=== PATIENT | male | born 1975 | race Caucasian/White ===

== ENCOUNTER 2020-03-13 10:52 | Outpatient (CLI) | payer OTHER, SELFPAY ==
--- NOTE | 2020-03-13 11:15 | XR_ITS ---
WS: [id number] Exam: XR elbow RT 2V [id number] Date/Time of Exam: 03/13/2020 11:15 AM Reason For Exam: RIGHT ELBOW PAIN Comparison 04/23/2016. No fracture or dislocation. No joint effusion. Normal soft tissues. XR/XR elbow RT 2V [id number] IMPRESSION: 1. Unremarkable right elbow..
== END 2020-03-13 10:53 | disposition home or self-care (01) ==
PROVIDERS: Visit Provider Dermatology
DX: M25.521 Pain in right elbow (principal)
CPT/HCPCS: 73070

== ENCOUNTER 2024-11-28 14:15 | Emergency (ER) | payer MEDICAID, SELFPAY ==
[2024-11-28 14:28] VITALS: BP 114/74; PULSE 75; RESP 18; TEMP 36.6; O2SAT 99; BMI 25.9
--- NOTE | 2024-11-28 18:02 | ED_ITS ---
HPI - Back Pain/Injury General: Chief Complaint: Back Pain/Injury Stated Complaint: back pain, felt pop, sob Time Seen by Provider: 11/28/24 16:20 Source: patient Mode of arrival: ambulatory Limitations: no limitations History of Present Illness: Patient is a 49-year-old male who presents the emergency department planing of right lower back pain. States that he bent down to move something felt a pop that started in his shoulder blades but now is in his right mid to low back and radiates down his right leg. States that his right arm is weak and numb, denies urinary symptoms or history of kidney stones. No chest pain or shortness of breath. States that he has a history of chronic back issues, and is set to have spinal stimulator placed soon. States he is here to make sure nothing is broken . No history of IV drug use, history of steroid use, history of cancer, bowel or bladder incontinence, or saddle anesthesia. MD elicited complaint: back pain Pertinent past history: prior back pain Onset (ago): hour(s) Timing: constant Severity: similar to previous episodes Similar Symptoms Previously: Yes Location: right lower back and right upper back Radiation: right upper leg Associated symptoms: Deny abdominal pain, difficulty walking, fecal incontinence, fever(s) or syncope Related Data Home Medications ?Medication ?Instructions ?Recorded ?Confirmed cyclobenzaprine 5 mg tablet ea PO 09/19/21 11/08/21 Previous Rx's ?Medication ?Instructions ?Recorded clindamycin phosphate 1 % lotion 1 applic topical BID #60 mL 10/31/21 mupirocin 2 % topical ointment 1 applic topical BID #2 2 grams 10/31/21 ketorolac 10 mg tablet 10 mg PO Q8H PRN pain 5 days #15 11/28/24 tabs methocarbamol 750 mg tablet 750 mg PO Q8H 5 days #15 t abs 11/28/24 prednisone 20 mg tablet 60 mg (3 x 20 mg) PO ONCE 5 days 11/28/24 #15 tabs Allergies Allergy/AdvReac Type Severity Reaction Status Date / Time hydrocodone Allergy Intermediate ADR-Itching Verified 11/08/21 09:00 tramadol Allergy Intermediate ADR-Agitate Verified 11/08/21 09:00 d Review of Systems General: Reports: 10 or more systems reviewed and unremarkable except in HPI and below Const: Reports: other (denies trauma); Denies: fever(s), change in weight or night sweats Card: Denies: chest pain, lightheadedness or syncope Resp: Denies: dyspnea GI: Denies: abdominal pain or fecal incontinence : Denies: urinary incontinence Musc: Reports: back pain and extremity pain (Right lower extremity); Denies: neck pain Skin/Breast: Denies: rash or skin pain Neuro: Reports: numbness in extremities (Right upper extremity); Denies: headache(s), weakness in extremities, sensory changes, lack of coordination, difficulty walking, frequent falls or involuntary movements PFS ED PFSH: Surgical History History of shoulder surgery History of decompression of ulnar nerve Social History Smoking and tobacco/nicotine status: current every day tobacco/nicotine user Physical Exam Const: COMMON NORMALS: patient oriented x3, no limitations, healthy appearing and alert OTHER: Appears uncomfortable secondary to pain Resp: COMMON NORMALS: normal respiratory effort, No retractions, No use of accessory muscles and clear to auscultation bilaterally AUSCULTATION: clear to auscultation bilaterally Cardio: COMMON NORMALS: regular rate, regular rhythm, S1 normal heart sound present and S2 normal heart sound present RATE: regular rate RHYTHM: regular rhythm HEART SOUNDS: S1 normal heart sound present and S2 normal heart sound present Back/Pelvis: COMMON NORMALS: straight leg raise negative bilaterally OTHER: Scar left thoracic back. Easily reproducible right lower and right mid back tenderness to palpation. Pain with lateral rotation at the back, as well as with flexion and extension. Extremity: COMMON NORMALS: normal to inspection and full ROM Neuro: COMMON NORMALS: patient oriented x3, moves all extremities, no focal motor deficits, no sensory deficits noted, deep tendon reflexes 2+ bilaterally and gait normal SENSORIUM/ORIENTATION: Yes alert OTHER: L3, L4, L5, and S1 nerve sensations intact. Normal knee jerk and ankle jerk reflexes. Skin: COMMON NORMALS: no rashes or lesions noted GENERAL SKIN EXAM: no rashes or lesions noted Course Vital Signs: Vital signs: Vital Signs Temperature 97.8 F 11/28/24 14:28 Pulse Rate 75 11/28/24 14:28 Respiratory Rate 18 11/28/24 14:28 Blood Pressure 114/74 11/28/24 14:28 Pulse Oximetry 99 11/28/24 14:28 Oxygen Delivery Me thod Room Air 11/28/24 14:28 MDM - Back Pain/Injury Medical Decision Making Patient presenting with atraumatic right-sided back pain, no red flag symptoms or signs of cauda equina with his history or exam. History of back surgery states he is soon to have neurostimulator placed. His vitals have been stable. Pain improved with medications here in the emergency department and there is no need for transfer for MRI or lab work here in the ED at this time. Suspect new back strain versus acute on chronic musculoskeletal pain and he is given strict return precautions to the ED to which he endorses understanding. No radiology studies performed this visit Discharge Plan Discharge Patient Disposition: Home Clinical Impression: Thoracic back pain Condition: Stable Prescriptions: New prednisone 20 mg tablet 60 mg PO ONCE 5 Days Qty: 15 0RF ketorolac 10 mg tablet 10 mg PO Q8H PRN (Reason: pain) 5 Days Qty: 15 0RF methocarbamol 750 mg tablet 750 mg PO Q8H 5 Days Qty: 15 0RF No Action cyclobenzaprine 5 mg tablet PO clindamycin phosphate 1 % lotion 1 applic topical BID Qty: 60 2RF Rx Instructions: To armpits 1-2 times daily mupirocin 2 % ointment 1 applic topical BID Qty: 22 1RF Rx Instructions: Apply to affected area until healed Discharge Orders: Discharge ED (Routine); Ordered 11/28/24 Ordered By: Cem Chakraborty Referrals: Roseline Lipscomb [Primary Care Provider, Nurse Practitioner] Patient Instructions: Patient Portal & Sami Instructions Activity Restrictions/Additional Instructions: Thoracic Back Pain Discharge Diagnosis: Right thoracic back pain (acute/subacute, non-traumatic, without red flag features). Medications: - Ketorolac (Toradol) 10 mg orally as prescribed - NSAIDs are strongly recommended for acute musculoskeletal back pain due to consistent evidence of efficacy over placebo.[1] https://doi.org/10.1097/JOM.1566001161603629 - Scheduled dosing is generally preferred for moderate/severe pain; PRN dosing may be reasonable for mild pain. - Monitor for gastrointestinal, renal, and cardiovascular adverse effects. Consider gastroprotection (e.g., proton pump inhibitor) if risk factors for GI bleeding are present.[1] https://doi.org/10.1097/JOM.5058761280018063 - Avoid concurrent use with other NSAIDs. - Methocarbamol (Robaxin) 750 mg orally as prescribed - Indicated as adjunct for relief of discomfort associated with acute, painful musculoskeletal conditions.[2] https://dailymed.Spoonity.nih.gov/dailymed/drugInfo.cfm?setid=2iv7s8yf-3m5h-2617-w5 63-0742p41uid42 - May cause drowsiness, dizziness, or JUNIOR PHP DEVELOPER depression; caution with driving, operating machinery, and concurrent use of alcohol or other JUNIOR PHP DEVELOPER depressants.[2] https ://dailymed.Spoonity.nih.gov/dailymed/drugInfo.cfm?setid=9em4a7yp-6y7v-8483-v814-4106 y90jhx42 - Use in conjunction with rest and physical therapy. - Prednisone 60 mg orally daily - The [place] [employer] and Department of Veterans Affairs guidelines do not recommend systemic corticosteroids for nonradicular or uncomplicated back pain due to lack of efficacy and potential adverse effects. [3] https://www.aafp.org/pubs/afp/issues//thizqbxt-rvavdbyphsklpuy-oun-back -pain.html [4] https://www.healthquality.va.g ov/guidelines/Pain/lbp/VDFIRFPWCWCMuohx362.pdf [1] https://doi.org/10.1097/JOM.8908268802371058 [5] https://www.spine.org/Portals/0/assets/downloads/ResearchClinicalCare/Guidelines /LowBackPain.pdf?vero=A3Hqet8WbKZ_TA8Hr5GOIQ%3d%3d [6] https://www.acpjournals.org/doi/abs/10.7326/Z75-8653?url_ver=Z39.88-2003&rfr_id= divina:rid:crossref.org&rfr_dat=cr_pub%20%200pubmed - For radicular pain, evidence is mixed; some guidelines allow for short courses in select cases, but benefits are modest and adverse effects (insomnia, nervousness, increased appetite) are more common.[4] https:// www.healthquality.va.gov/guidelines/Pain/lbp/GXPFGOJWGFGCeens550.pdf [1] https://doi.org/10.1097/JOM.9920489157479317 - Chronic use increases risk of osteoporosis and other complications; monitor for side effects and reassess need for ongoing therapy.[7] https://mobiDEOS.[place]/retrieve/pii/S5616-4644(56)21722-4 - If prescribed, ensure clear indication and duration, and educate patient on potential adverse effects. Adjunctive Management: - Rest and Physical Therapy: Methocarbamol is most effective when combined with rest and physical therapy.[2] https://[employer].Spoonity.[place].gov/[employer]/drugInfo.cfm?setid=4kc8t4lx-6z8n-7919-x860 -5293o00eko32 - Activity: Encourage gradual return to normal activities as tolerated; prolonged bed rest is not recommended. - Follow-up: Schedule follow-up if pain persists beyond 4-6 weeks, worsens, or if new symptoms develop. Red Flag Symptoms (require urgent evaluation): - Fever, chills, unexplained weight loss - History of cancer, immunosuppression, or recent infection - Neurologic deficits (weakness, numbness, bowel/bladder dysfunction) - Significant trauma - Age >65 or chronic steroid use (risk for compression fracture)[7] https://Voxbone/retrieve/pii/E0179-1944(39)66300-9 Patient Education: - Take medications exactly as prescribed. - Report any side effects (GI bleeding, severe drowsiness, mood changes, insom michelle, increased appetite). - Avoid alcohol and other sedatives while taking methocarbamol. - Do not exceed recommended doses. - Seek immediate care for red flag symptoms. Summary of Evidence: - NSAIDs are first-line for acute thoracic back pain.[1] https://doi.org/10.1097/JOM.3158222639317434 - Muscle relaxants may provide short-term relief as adjuncts.[2] https://[employer].nlm.nih.gov/dailymed/drugInfo.cfm?setid=4sm0h7zz-7n8i-9839-m717 -5136r34lba94 - Systemic corticosteroids are generally not recommended for nonradicular pain; use should be limited and closely monitored if prescribed.[3] https://www.aafp.org/pubs/afp/issues//veivqcxy-xaibfghhuatvdse-jms-back -pain.html [4] https://www.healthquality.va .gov/guidelines/Pain/lbp/GMASTNBOMDXVbxzs441.pdf [1] https://doi.org/10.1097/JOM.7883110858928293 [5] https://www.spine.org/Portals/0/assets/downloads/ResearchClinicalCare/Guidelines /LowBackPain.pdf?vero=A3Hqet8WbKZ_TA8Hr5GOIQ%3d%3d [6] https://www.acpjournals.org/doi/abs/10.7326/X82-8977?url_ver=Z39.88-2003&rfr_id= divina:rid:crossref.org&rfr_dat=cr_pub%20%200pubmed - Imaging is not indicated unless red flag symptoms are present or pain persists despite conservative management.[7] https://Artist Growthb.TicketForEvent.makerSQR/retrieve/pii/A6939-4955(24)52489-5 References * Non-Invasive and Minimally Invasive Management of Low Back Disorders https://doi.org/10.1097/JOM.7759232881594231 . Danyel CALLAHAN, Jaime R, Diego BECKERJ, et al. Journal of Occupational and Environmental Medicine. 2020;62(3):c176-u612. doi:10.1097/JOM.4105794163282360. * Olga https://dailymed.Spoonity.nih.gov/dailymed/drugInfo.cfm?setid=8fo9q3ez-3f5s-42 70-m750-2494c99rpc93 . Food and Drug Administration. Updated date: 2023-10-05. * Benefits and Harms of Systemic Corticosteroids for Radicular and Nonradicular Low Back Pain https:/ /www.aafp.org/pubs/afp/issues//lgiqfqwg-oatktocgirmriby-wmc-back-pain .html . [place] [employer] (2022). * Diagnosis and Treatment of Low Back Pain (LBP) (2021) https://www.healthquality.va.gov/guidelines/Pain/lbp/RTTFBKVLDJONgsje665.pdf . Maj Aye Leo DPT DSc OCS FAAOMPT, Pipe May MD MA, [facility] Dewayne Valadez MD, et al. Department of [facility]. * Evidence-Based Clinical Guidelines For Multidisciplinary Spine Care https://www.spine.org/Portals/0/assets/downloads/ResearchClinicalCare/Guidelin es/LowBackPain.pdf?vero=A3Hqet8WbKZ_TA8Hr5GOIQ%3d%3d . D. Carlton Conklin MD, Hugo Drew MD, Felipe Vega MD MS, et al. [place] [employer] (2020). * Noninvasive Treatments for Acute, Subacute, and Chronic Low Back Pain: A Clinical Practice Guideline From the [place] [employer] https://www.acpjournals.org/doi/abs/10.7326/X25-3142?url_ver=Z39.88-2003&rfr_i d=divina:rid:crossref.org&rfr_dat=cr_pub%20%200pubmed . Danny A, Joe TJ, Ele RM, et al. Annals of Internal Medicine. 2017;166(7):514-530. doi:10.7326/M16- 2367. * ACR Appropriateness Criteria? Thoracic Back Pain https://linkinghub.elsevier.com/retrieve/pii/K0287-[address](40)64116-3 . Deb GOODMAN, Nadia MS, Harman DJ, et al. Journal of the [place] [employer] : JACR. 2023;21(11S):L449-W625. doi:10.1016/j.jacr.202.08.016. Print Language: Nigerien Coding Level of Care Code ED Relationship Counselor for Chg Fwd
[2024-11-28] MEDS: orphenadrine 30 mg/mL Inj 2 mL 60 MG IM (18:09)
[2024-11-28] MEDS: oxyCODONE-APAP 5-325 mg Tablet 1 TAB PO (18:09)
== END 2024-11-28 18:41 | disposition home or self-care (01) ==
PROVIDERS: Emergency Provider Physician Assistant; PCP Nurse Practitioner Family
DX: M54.6 Pain in thoracic spine (principal); Z98.890 Other specified postprocedural states
CPT/HCPCS: 96372; 99284; J1100; J1885; J2360; J9999